=== PATIENT | male | born 1935 | race Two or more races ===

== ENCOUNTER 2020-07-10 15:23 | Emergency (ER) | payer OTHER ==
[~2020-07-10] VITALS: Ht 180.3 cm; Wt 56.7 kg
[2020-07-10] MEDS ORDERED: LIDOCAINE 1% HCL (LOCAL ANESTH.) INJ 20ML MDV IJ ONE (17:15)
[2020-07-10 17:44] VITALS: BP 155/74
== END 2020-07-10 18:44 | disposition home or self-care (01) ==
LOC: ER 15:23
DX: S01.411A Laceration without foreign body of right cheek and temporomandibular area, initial encounter (principal); S01.111A Laceration without foreign body of right eyelid and periocular area, initial encounter; I10 Essential (primary) hypertension; W01.0XXA Fall on same level from slipping, tripping and stumbling without subsequent striking against object, initial encounter; Y93.01 Activity, walking, marching and hiking; Y92.89 Other specified places as the place of occurrence of the external cause; Y99.8 Other external cause status
CPT/HCPCS: 12013; 70450; 70486; 72125; 93005; 99285; J2001

== ENCOUNTER 2020-08-05 10:40 | Emergency (ER) | payer OTHER ==
[~2020-08-05] VITALS: Ht 180.3 cm; Wt 59.0 kg
[2020-08-05 10:47] VITALS: BP 150/80
[2020-08-05] MEDS ORDERED: LIDOCAINE 1% HCL (LOCAL ANESTH.) INJ 20ML MDV IJ ONE (12:00)
[2020-08-05] MEDS ORDERED: BACITRACIN TOP OINT 1 UD PKG TOP ONE (12:00)
== END 2020-08-05 12:52 | disposition home or self-care (01) ==
LOC: EDBD 10:40 → ER 10:40
DX: S01.81XA Laceration without foreign body of other part of head, initial encounter (principal); S60.512A Abrasion of left hand, initial encounter; I10 Essential (primary) hypertension; W54.0XXA Bitten by dog, initial encounter; Y93.89 Activity, other specified; Y92.89 Other specified places as the place of occurrence of the external cause; Y99.8 Other external cause status
CPT/HCPCS: 12011; 70450; 72125; 73120; 99285; J2001

== ENCOUNTER 2021-02-12 10:27 | Emergency (ER) | payer OTHER ==
[~2021-02-12] VITALS: Ht 180.3 cm; Wt 54.4 kg
[2021-02-12] MEDS ORDERED: LISI20TA28 PO (11:30)
[2021-02-12] MEDS ORDERED: LOVA40TA72 PO (11:30)
[2021-02-12] MEDS ORDERED: NIFE1TAB31 PO (11:30)
[2021-02-12 12:03] LABS: Basophils # (auto) 0 10 ^3/uL (0-0.2); Basophils % (auto) 0.3 % (0.0-2.0); Eosinophils # (auto) 0 10 ^3/uL (0-0.8); Eosinophils % (auto) 0.4 % (0.0-7.0); Hematocrit 42.9 % (41.0-53.0); Lymphocytes % (auto) 11.3 % (10.0-50.0); Mean Corpuscular Hemoglobin 28.4 pg (28.0-32.0); Mean Corpuscular Hgb Conc. 32.6 g/dL (32.0-36.0); Mean Corpuscular Volume 87.2 fL (80.0-100.0); Monocytes # (auto) 0.6 10 ^3/uL (0-1.3); Monocytes % (auto) 6.9 % (0.0-12.0); Neutrophils # (auto) 7.1 10 ^3/uL (1.6-8.6); Neutrophils % (auto) 81.1 % (37.0-80.0); Red Blood Cells 4.91 10^6/uL (4.5-5.90); Red Cell Distribution Width 14.3 % (11.8-14.3); White Blood Cell 8.8 10^3/uL (4.4-10.8)
[2021-02-12 12:18] LABS: Alanine Aminotransferase 14 U/L (16-61); Albumin 3.4 g/dL (3.4-5.0); Anion Gap 6 (5-15); Blood Urea Nitrogen 18 mg/dL (7-18); Calcium 9.7 mg/dL (8.5-10.1); Carbon Dioxide 28 mmol/L (21-32); Chloride 102 mmol/L (98-107); Glucose 99 mg/dL (74-106); Magnesium 2.5 mg/dL (1.6-2.6); Potassium 3.9 mmol/L (3.5-5.1); Sodium 136 mmol/L (136-145)
[2021-02-12 12:22] LABS: Alkaline Phosphatase 63 U/L (45-117); Aspartate Aminotransferase 14 U/L (15-37); BUN/Creatinine Ratio 23.7; Bilirubin, Total 0.7 mg/dL (0.2-1.0); GFR African American 125 mL/min; GFR Non-African American 104 mL/min; Total Protein 7.8 g/dL (6.4-8.2)
[2021-02-12 13:33] VITALS: BP 138/64
[2021-02-12 13:39] LABS: INR 1.1 (0.9-1.15); Partial Thromboplastin Time 27.4 sec (23.6-33.0)
== END 2021-02-12 13:58 | disposition short-term general hospital (02) ==
LOC: ER 10:27
DX: S06.5X0A Traumatic subdural hemorrhage without loss of consciousness, initial encounter (principal); R53.1 Weakness; I10 Essential (primary) hypertension; Z90.49 Acquired absence of other specified parts of digestive tract; Z79.899 Other long term (current) drug therapy; W19.XXXA Unspecified fall, initial encounter; Y93.89 Activity, other specified; Y92.89 Other specified places as the place of occurrence of the external cause; Y99.8 Other external cause status
CPT/HCPCS: 36415; 70450; 71045; 72125; 80053; 83735; 84484; 85025; 85610; 85730; 93005; 99291